=== PATIENT | female | born 1975 | race Two or more races ===

== ENCOUNTER 2025-05-03 20:38 | Emergency (ER) | payer MEDICAID, OTHER ==
[~2025-05-03] VITALS: Ht 162.6 cm; Wt 68.1 kg
--- NOTE | 2025-05-04 02:15 | DVH ---
CLINICAL INDICATION: Left hip pain TECHNIQUE: XY L HIP COMPLETE XRAY Comparison: None FINDINGS/IMPRESSION: : There is no evidence of acute fracture or dislocation. Soft tissues are unremarkable.
--- NOTE | 2025-05-04 02:39 | ED.PDOC ---
History of Present Illness HPI Comments 49 year old female came to ER due to abdominal pain. Patient states for the past few days, she has been experiencing left lower quadrant abdominal pain radiating down her left hip/left lower back. States pain is causing her difficulty whenever she sits down. Ibuprofen taken offers slight relief. Denies any urinary symptoms. Does have history of ovarian and uterine cysts. REVIEW OF SYSTEMS: No fever, no chills, or fatigue HEENT: No sore throat, no earache, no congestion, no neck pain. Cardiac: No chest pain. No palpitations. Lungs: No shortness of breath, no cough. GI: No nausea, no vomiting, no diarrhea, no constipation, (+) abdominal pain : No dysuria, frequency, or urgency. No hematuria. Musculoskeletal: No joint pain , no joint swelling, no extremity edema. Skin: No rash, no itching. Neuro: No headache, no dizziness, no weakness Physical exam General: Awake, alert and oriented. No acute distress. Skin: Skin in warm, dry and intact. Appropriate color for ethnicity. Nailbeds pink with no cyanosis. HEENT: The head is normocephalic and atraumatic. Conjunctivae are clear without exudates or hemorrhage. Sclera is non-icteric. EOM are intact. No signs of nystagmus. Eyelids are normal in appearance without swelling or lesions. Oral mucosa is pink and moist Neck: The neck is supple with normal range of motion. No JVD. Cardiac: Heart rate and rhythm are normal. No murmurs, gallops, or rubs are auscultated. Respiratory: No signs of respiratory distress. Lung sounds are clear in all lobes bilaterally without rales, rhonchi, or wheezes. Abdominal: Abdomen is soft, left lower quadrant tenderness. Extremities: Left hip tenderness. Neurological: The patient is awake, alert and oriented to person, place, and time with normal speech. Speech is clear. There is no facial asymmetry. Normal gait Psychiatric: Appropriate mood and affect. Good judgement and insight. No visual or auditory hallucinations. Chief Complaint: Lower Extremity Time Seen by MD: 02:39 Reviewed Notes: Nurses Notes Allergies: Coded Allergies: No Known Drug Allergy (Verified Allergy, Unknown, 05/03/25) Home Meds Active Scripts Nitrofurantoin Monohydrate Mac (Macrobid) 100 Mg Cap, 100 MG PO BID for 7 Days, #14 CAP Prov:CONSUELO SORENSON MD 05/04/25 Acetaminophen (Acetaminophen Er) 650 Mg Tab, 650 MG PO TIDPRN PRN for 5 Days, #15 TAB Prov:GENTRY PURVIS MD 05/04/25 Information Source: Patient Mode of Arrival: Ambulatory Past Medical History PAST MEDICAL HISTORY: Denies Surgical History: Denies all surgeries [employer] History: Ovarian Cysts Family History Family History: Reviewed,noncontributory to illness Social History Smoker: Non-Smoker Alcohol: Denies ETOH Use Drugs: Denies Drug Use Lives In: Home Was a procedure done? Was a procedure done?: No Differential Dx Considerations may include: Differential diagnoses considered include: Intestinal obstruction, mesenteric ischemia, perforated viscus or solid organ rupture, abscess, diverticulitis, gastritis, gastroenteritis, hernia, inflammatory bowel disease, urinary tract infection, ureteral colic, constipation, irritable syndrome, abdominal wall pain, nonspecific abdominal pain, herpes zoster, nephrolithiasis.Also ruptured ectopic , ovarian torsion/cyst, tubo-ovarian abscess, PID, endometriosis, mittleschmerz. X-Ray, Labs, Meds, VS Vital Signs Date Time Temp Pulse Resp B/P (MAP) Pulse Ox O2 Delivery O2 Flow Rate FiO2 05/04/25 09:42 98.4 50 14 112/64 (80) 98 98.4 05/04/25 00:50 97.7 60 16 126/60 (82) 97 97.7 05/04/25 00:50 60 16 98 Room Air 05/03/25 20:43 98.0 74 16 110/63 95 98.0 Lab Test 05/04/25 03:31 Range/Units Urine Color Yellow Yellow Urine Clarity Clear Clear Urine pH 5.5 5.0-9.0 Urine Specific [place] 1.028 1.001-1.035 Urine Protein Negative Negative Urine Ketones Negative Negative Urine Blood Negative Negative /uL Urine Nitrite Negative Negative Urine Bilirubin Negative Negative Urine Urobilinogen Normal Negative mg/dL Urine Leukocyte Esterase 1+ Negative /uL Urine Glucose Normal Normal mg/dL PATIENT: NIKHIL MORRIS ACCT: [id number] UNIT: [id number] : 1975 LOC: ER ROOM / BED: / AGE / SEX: 49 / F ADM STATUS: REG ER SERVICE [id number] ORDERING PHYSICIAN: GENTRY PURVIS MD PROCEDURE(s): LHIP - L HIP COMPLETE XRAY REASON: Left hip pain ORDER NUMBER(s): [id number], ACCESSION NUMBER(s): [id number] CLINICAL INDICATION: Left hip pain TECHNIQUE: XY L HIP COMPLETE XRAY Comparison: None FINDINGS/IMPRESSION: : There is no evidence of acute fracture or dislocation. Soft tissues are unremarkable. ATED BY: ANUPAM COLEMAN MD DICTATED DATE/TIME: 05/04/25212 SIGNED BY: ANUPAM COLEMAN MD SIGNED DATE/TIME: 05/04/25212 CC: [place] [id number] Ph: [phone] DIAGNOSTIC IMAGING Diagnostic Imaging Report : [id number] Signed PATIENT: NIKHIL MORRIS ACCT: [id number] UNIT: [id number] : 1975 LOC: ER ROOM / BED: / AGE / SEX: 49 / F ADM STATUS: REG ER SERVICE 8 ORDERING PHYSICIAN: GENTRY PURVIS MD PROCEDURE(s): PELUS - PELVIC REASON: Left pelvic pain history of ovarian cyst ORDER NUMBER(s): [id number], ACCESSION NUMBER(s): [id number] US PELVIC HISTORY: Left pelvic pain history of ovarian cyst COMPARISON: None TECHNIQUE: Transabdominal and transvaginal images with color and spectral doppler were obtained of the pelvis and ovaries. FINDINGS: Uterus: - Measures 7.9 x 4.3 x 5.3 cm in length. - Echogenicity: Normal - Mass lesions: 1.2 x 0.9 x 1.1 cm fibroid. - Endometrial stripe: 2.6 mm - Cervix: Normal. Right ovary: - Measures 2.9 x 2.1 x 3.1 cm - Vascularity: Normal flow on Doppler images. - Mass lesions: None Left ovary: - Measures 2.6 x 1.7 x 1.7 cm - Vascularity: Normal flow on Doppler images. - Mass lesions: None Adnexal masses: None Free fluid: None Other: None IMPRESSION: Two small fibroids with largest measuring 1.2 x 0.9 x 1.1 cm fibroid. Otherwise unremarkable sonographic findings of the uterus and bilateral ovaries. ATED BY: PROSPER ESCALONA MD DICTATED DATE/TIME: 05/04/25856 SIGNED BY: PROSPER ESCALONA MD SIGNED DATE/TIME: 05/04/25856 CC: Time of 1ST Reevaluation: 02:33 Reevaluation 1ST: Unchanged Time of 2ND Reevaluation: 05:49 Reevaluation 2ND: Improved Patient Education/Counseling: Need For Follow Up Family Education/Counseling: No Family Present SEPSIS Sepsis Screen Date sepsis recognized/suspect: May 03, 2025 Time Sepsis recognized/suspect: 2045 Recent Procedure: No On Antibiotic Therapy: No Respiratory Rate >20: No Heart Rate >90: No Temp<36 C (96.8 F) or >38.3 C: No SBP <90 or MAP <65 mmHG: No New Acute Mental Status Change: No Is the patient on CPAP, BIPAP,: No Physician Orders L Hip Complete Xray (05/04/25 01:38) Pelvic (05/04/25 02:19) Vital Signs Date Time Temp Pulse Resp B/P (MAP) Pulse Ox O2 Delivery O2 Flow Rate FiO2 05/04/25 09:42 98.4 50 14 112/64 (80) 98 98.4 05/04/25 00:50 97.7 60 16 126/60 (82) 97 97.7 05/04/25 00:50 60 16 98 Room Air 05/03/25 20:43 98.0 74 16 110/63 95 98.0 Departure 1 Departure Time of Disposition: 05:51 Impression: Primary Impression: Pelvic pain Additional Impression: UTI (urinary tract infection) Qualified Codes: N30.00 - Acute cystitis without hematuria Disposition: HOME / SELF CARE / HOMELESS Condition: Good Additional Instructions: INSTRUCCIONES DE DODIE DE Urgencias Instrucciones: Varsha atentamente todas las instrucciones proporcionadas en [place]. Aunque le hayan dado el dodie del Departamento de Emergencias, esto no significa que tenga un "certificado de buena rohan". [place]oy no se freitas realizado ningn diagnstico definitivo para parrish sntomas. Es posible que ests en proceso de desarrollar dayana enfermedad grave. Es por eso que debe regresar al servicio de urgencias sin falta si presenta algn sntoma nuevo o que empeora (especialmente si parrish sntomas incluyen dolor en el pecho, dificultad para respirar, dolor abdominal, fiebre, dolor de grant, confusin, dificultad para naina o caminar). Tambin es muy importante que consulte a un mdico de atencin primaria dentro de los prximos 3 a 5 olmedo para realizar un seguimiento. Si no puede conseguir dayana adele, regrese al servicio de urgencias para dayana nueva evaluacin. e-Prescriptions Nitrofurantoin Monohydrate Mac (Macrobid) 100 Mg Cap 100 MG PO BID for 7 Days, #14 CAP Prov: CONSUELO SORENSON MD 05/04/25 Acetaminophen (Acetaminophen Er) 650 Mg Tab 650 MG PO TIDPRN PRN for 5 Days, #15 TAB Prov: GENTRY PURVIS MD 05/04/25 Discharged With: Self Critical Care Note Critical Care Time?: No Stability Stability form required: No Heart Score Heart Score: Heart Score Response (Comments) Value History N/A 0 EKG N/A 0 Age N/A 0 Risk Factors N/A 0 Troponin N/A 0 Total 0 I personally scribed for GENTRY PURVIS MD ([email or web address]) on 05/04/25 at 02:39. Electronically submitted by Venancio Smith ([email or web address]). GENTRY PURVIS MD May 04, 2025 02:39 CONSUELO SORENSON MD May 04, 2025 08:05
[2025-05-04] MEDS: KETOROLAC TROMETH 30 MG/ML 1ML VIAL IM ONE (02:43)
[2025-05-04] MEDS: ACETAMINOPHEN 325 MG TAB PO ONE (02:43)
[2025-05-04 03:54] LABS: Urine Protein, UAD Negative (Negative)
[2025-05-04] MEDS ORDERED: ACET650T12 PO (05:51)
--- NOTE | 2025-05-04 08:59 | DVH ---
US PELVIC HISTORY: Left pelvic pain history of ovarian cyst COMPARISON: None TECHNIQUE: Transabdominal and transvaginal images with color and spectral doppler were obtained of th e pelvis and ovaries. FINDINGS: Uterus: - Measures 7.9 x 4.3 x 5.3 cm in length. - Echogenicity: Normal - Mass lesions: 1.2 x 0.9 x 1.1 cm fibroid. - Endometrial stripe: 2.6 mm - Cervix: Normal. Right ovary: - Measures 2.9 x 2.1 x 3.1 cm - Vascularity: Normal flow on Doppler images. - Mass lesions: None Left ovary: - Measures 2.6 x 1.7 x 1.7 cm - Vascularity: Normal flow on Doppler images. - Mass lesions: None Adnexal masses: None Free fluid: None Other: None IMPRESSION: Two small fibroids with largest measuring 1.2 x 0.9 x 1.1 cm fibroid. Otherwise unremarkable sonographic findings of the uterus and bilateral ovaries.
[2025-05-04 09:42] VITALS: BP 112/64; PULSE 50; RESP 14; TEMP 98.4; O2SAT 98
[2025-05-04] MEDS ORDERED: NITR-87 PO (09:51)
== END 2025-05-04 09:52 | disposition home or self-care (01) ==
LOC: ER 20:38
DX: N39.0 Urinary tract infection, site not specified (principal); R10.2 Pelvic and perineal pain; Z79.899 Other long term (current) drug therapy
CPT/HCPCS: 73502; 76830; 76856; 81003; 96372; 99285; J1885